=== PATIENT | female | born 1985 | race Caucasian/White ===

== ENCOUNTER → 2017-10-26 14:04 | Outpatient (REF) | payer MEDICAID, SELFPAY ==
[2017-10-26 18:40] LABS: Basophils % 0.6 % (0.1-2.0); Eosinophils # 0.2 K/mm3 (0.0-0.4); Eosinophils % 2.4 % (0.1-12.0); Hematocrit 45.1 % (37.0-47.0); Hemoglobin 13.9 g/dL (12.2-16.2); Lymphocytes # 1.7 K/mm3 (0.7-4.5); Lymphocytes % 24.2 K/mm3 (10-50); Mean Corpuscular HGB Conc 30.9 g/dL (31.8-35.4); Mean Corpuscular Volume 93.7 fl (81-99); Mean Platelet Volume 8.7 fl (7.4-10.4); Monocytes # 0.3 K/mm3 (0.1-1.0); Monocytes % 4.2 % (1.7-9.3); Neutrophils # 4.9 K/mm3 (1.8-7.8); Neutrophils % 68.5 % (37.0-80.0); Platelet Count 251 K/mm3 (142-424); Red Blood Count 4.81 M/mm3 (4.20-5.40); Red Cell Distribution Width 12.8 % (11.5-17.5); White Blood Count 7.1 K/mm3 (4.8-10.8)
[2017-10-26 18:58] LABS: Alanine Aminotransferase 38 U/L (12-78); Albumin Level 3.7 gm/dL (3.4-5.0); Albumin/Globulin Ratio 1.4 (1.1-1.8); Alkaline Phosphatase 80 U/L (46-116); Anion Gap 11.5 mEq/L (5-15); Aspartate Amino Transferase 18 U/L (15-37); Bilirubin,Total 0.2 mg/dL (0.2-1.0); Blood Urea Nitrogen 10 mg/dL (7-18); Calcium 9.4 mg/dL (8.5-10.1); Carbon Dioxide 28 mmol/L (21.0-32.0); Chloride 106 mmol/L (98-107); Chol/HDL Ratio 4.3 (1-3.5); Cholesterol 206 mg/dL (140-200); Creatinine,Serum 0.53 mg/dL (0.55-1.02); Estimated Glomerular Filt Rate 132 ml/min (>60); GFR (African American) 160 ML/MIN (>60); Globulin 2.7 gm/dl (1.3-3.2); Glucose 88 mg/dL (74-106); HDL Cholesterol 48 mg/dL (29-89); LDL Cholesterol 132 mg/dL (0-130); Potassium 4.5 mmoL/L (3.5-5.1); Sodium 141 mmol/L (136-145); T4 (Thyroxine) 7.4 ug/dl (4.7-13.3); Total Protein,Serum 6.4 gm/dL (6.4-8.2); Triglycerides 128 mg/dL (30-200); VLDL Cholesterol 26 mg/dL (0-40)
== END ==
LOC: LAB 14:04
PROVIDERS: Visit Provider Physician Assistant
DX: E66.09 Other obesity due to excess calories (principal); Z68.39 Body mass index [BMI] 39.0-39.9, adult
CPT/HCPCS: 80053; 80061; 82652; 84436; 84443; 85025

== ENCOUNTER → 2018-07-28 13:36 | Outpatient (CLI) | payer MEDICAID, SELFPAY ==
[2018-07-28 14:53] LABS: Amphetamine/Metha Screen,Urine Negative ng/mL (<1000); Barbiturates Screen,Urine Negative ng/mL (<200); Benzodiazepines Screen,Urine Negative ng/mL (<200); Cannabinoid Screen,Urine Negative ng/mL (<50); Cocaine Screen,Urine Negative ng/mL (<300); Methadone Screen,Urine Negative ng/mL (<300); Opiate Screen,Urine Negative ng/mL (<300); Phencyclidine Screen,Urine Negative ng/mL (<25)
== END ==
PROVIDERS: Visit Provider Nurse Practitioner Family
DX: Z79.899 Other long term (current) drug therapy (principal)
CPT/HCPCS: 80305

== ENCOUNTER → 2019-01-11 17:48 | Outpatient (CLI) | payer MEDICAID, SELFPAY ==
[2019-01-11 19:07] LABS: Basophils % 0.5 % (0.1-2.0); Eosinophils # 0.2 K/mm3 (0.0-0.4); Eosinophils % 2.9 % (0.1-12.0); Hematocrit 40.2 % (37.0-47.0); Hemoglobin 12.9 g/dL (12.2-16.2); Lymphocytes # 2.1 K/mm3 (0.7-4.5); Lymphocytes % 34.8 % (10-50); Mean Corpuscular HGB Conc 32.2 g/dL (31.8-35.4); Mean Corpuscular Hemoglobin 29.6 pg (27.0-31.2); Mean Corpuscular Volume 91.8 fl (81-99); Mean Platelet Volume 8.4 fl (7.4-10.4); Monocytes # 0.3 K/mm3 (0.1-1.0); Monocytes % 4.9 % (1.7-9.3); Neutrophils # 3.5 K/mm3 (1.8-7.8); Platelet Count 280 K/mm3 (142-424); Red Blood Count 4.38 M/mm3 (4.20-5.40); Red Cell Distribution Width 12.8 % (11.5-17.5); White Blood Count 6.2 K/mm3 (4.8-10.8)
[2019-01-11 21:49] LABS: Alanine Aminotransferase 29 U/L (12-78); Albumin Level 3.9 gm/dL (3.4-5.0); Albumin/Globulin Ratio 1.4 (1.1-1.8); Alkaline Phosphatase 68 U/L (46-116); Anion Gap 11.8 mEq/L (5-15); Aspartate Amino Transferase 15 U/L (15-37); Bilirubin,Total 0.2 mg/dL (0.2-1.0); Blood Urea Nitrogen 10 mg/dL (7-18); Calcium 8.9 mg/dL (8.5-10.1); Carbon Dioxide 28 mmol/L (21.0-32.0); Chloride 104 mmol/L (98-107); Chol/HDL Ratio 3.7 (1-3.5); Cholesterol 166 mg/dL (140-200); Creatinine,Serum 0.65 mg/dL (0.55-1.02); Estimated Glomerular Filt Rate 104 ml/min (>60); GFR (African American) 126 ML/MIN (>60); Globulin 2.7 gm/dl (1.3-3.2); Glucose 74 mg/dL (74-106); HDL Cholesterol 45 mg/dL (29-89); LDL Cholesterol 91 mg/dL (0-130); Potassium 3.8 mmoL/L (3.5-5.1); Sodium 140 mmol/L (136-145); T4 (Thyroxine) 7.7 ug/dl (4.7-13.3); Thyroid Stimulating Hormone 1.44 uIU/ml (0.358-3.740); Total Protein,Serum 6.6 gm/dL (6.4-8.2); Triglycerides 149 mg/dL (30-200); VLDL Cholesterol 30 mg/dL (0-40)
[2019-01-13 12:51] LABS: Vitamin D 25 Hydroxy 61.7 ng/mL (30.0-100.0)
== END ==
PROVIDERS: Visit Provider Physician Assistant
DX: L65.9 Nonscarring hair loss, unspecified (principal)
CPT/HCPCS: 80053; 80061; 82652; 84436; 84443; 85025

== ENCOUNTER 2021-11-30 09:04 | Emergency (ER) | payer MEDICAID, SELFPAY ==
[2021-11-30 09:24] VITALS: BP 117/79; PULSE 58; RESP 18; TEMP 36.7; O2SAT 99; BMI 29.0
[2021-11-30 09:48] VITALS: BP 117/79; PULSE 58; RESP 18; TEMP 36.7; O2SAT 99; BMI 29.3
--- NOTE | 2021-11-30 09:52 | XR_ITS ---
FINAL REPORT CLINICAL HISTORY: pain FINDINGS: 3 views of the left shoulder were obtained. There is no acute fracture or dislocation. The joint spaces are intact. There are no soft tissue abnormalities. IMPRESSION: No acute process. Reviewed, Interpreted and Dictated by Brian Huang MD Transcribed by Ag Edwards Authenticated and [facility]
--- NOTE | 2021-11-30 09:52 | HMH.EDUTC ---
[facility] [place] Impression: Muscle spasm Disposition: Home, Self-Care Condition on Discharge: Good Instructions: Cyclobenzaprine, DI for Muscle Spasm Additional Instructions: *Etodalac sandi 8 hours with meal as needed for pain/inflammation *Not additional anti-inflammatory like Ibuprofen motrin, aleve, advil with the above amount of Etodolac. You can still take Tylenol every 4 hours as needed if you need something else for pain *Ice 20 minutes every 2 hours for the first 48 hours after the initial injury followed by moist heat every 20 minutes 3-4 times a day to affected area *Muscle relaxer every 8 hours as needed for muscle spasms but remember, it WILL cause drowsiness You cannot take it and drive, operate machinery or care for small children. *Keep this area active, no movement leads to more stiffness, However take it easy and avoid heavy lifting pushing or pulling *Follow up with you family doctor if no improvement for further treatment Prescriptions: Etodolac 200 mg PO Q8HP PRN #20 cap PRN Reason: Moderate Pain Transmission Status: Received by [id number] Cyclobenzaprine HCl [Flexeril 10mg tablet] 10 mg PO Q8HP PRN #15 tab PRN Reason: Muscle Spasm Transmission Status: Received by [id number] methylPREDNISolone [Medrol 4mg tab] 4 mg PO DIRECTED #21 tab Transmission Status: Received by [id number] Referrals: Manuela Ovalle PA [Primary Care Provider] - As needed Forms: Work/School Release Time of Disposition: 10:15 Medical Decision Making - Neftali Inquiry Pt receiving controlled substance: No Neftali was queried for this patient: No Vital Signs: 11/30/21 09:24 11/30/21 09:48 11/30/21 10:20 Temperature 98.0 F 98.0 F 98.0 F Temperature Source Oral Oral Pulse Rate 58 L Pulse Rate [Brachial] 58 L 58 L Respiratory Rate 18 18 18 Blood Pressure 117/79 Blood Pressure [Right Arm] 117/79 117/79 Blood Pressure Mean [Right Arm] 91 91 Blood Pressure Source [Right Arm] Automatic Cuff 02 Sat by Pulse Oximetry 99 99 Oxygen Delivery Method Room Air - Radiology Data #1 Image(s): Shoulder Image Reviewed: Yes I reviewed the patient's radiology image Preliminary Findings: No Fracture [place] [facility] [place] [facility] [place] - General Stated complaint: shoulder pain Time Seen by Provider: 11/30/21 09:53 Description of Symptoms (Recalled from Triage Doc. by RN): patient comes in with left shoulder pain. 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 States that pain is worse with movement and doesnt recall doing anything to hurt it States that she was hanging from bar and lifting weights last week and muscle pain started after that Denies chest pain or radiation of pain - Related Data Previous Rx's Medication Instructions Recorded cholecalciferol (vitamin D3) 25 25 mcg PO DAILY #30 cap 12/10/20 mcg (1,000 unit) capsule ofloxacin 0.3 % ear drops 10 drp OTIC DAILY 7 Days #10 ml 04/15/21 phentermine 37.5 mg capsule 37.5 mg PO DAILY #30 cap 04/15/21 cholecalciferol (vitamin D3) 1,250 See Rx Instructions .ROUTE 08/18/21 mcg (50,000 unit) capsule .COMPLEX #13 cap Cyclobenzaprine HCl [Flexeril 10mg 10 mg PO Q8HP PRN #15 tab 11/30/21 tablet] Etodolac 200 mg PO Q8HP PRN #20 cap 11/30/21 methylPREDNISolone [Medrol 4mg 4 mg PO DIRECTED #21 tab 11/30/21 tab] Allergies Allergy/AdvReac Type Severity Reaction Status Date / Time No Known Allergies Allergy Verified 11/30/21 09:51 - Worker's Comp Is this a Worker's Comp case?: No [facility] History -
[2021-11-30 10:20] VITALS: BP 117/79; PULSE 58; RESP 18; TEMP 36.7
== END 2021-11-30 10:21 | disposition home or self-care (01) ==
PROVIDERS: Emergency Provider Nurse Practitioner; PCP Physician Assistant
DX: M62.838 Other muscle spasm (principal); M25.512 Pain in left shoulder
CPT/HCPCS: 73030; 99212; G0463

== ENCOUNTER → 2022-11-02 23:23 | Outpatient (CLI) | payer MEDICAID, SELFPAY ==
[2022-11-02 18:50] LABS: Basophils % 0.5 % (0.1-2.0); Eosinophils # 0.1 K/mm3 (0.0-0.4); Hematocrit 47.3 % (37.0-47.0); Lymphocytes # 1.9 K/mm3 (0.7-4.5); Lymphocytes % 19.8 % (10-50); Mean Corpuscular HGB Conc 31.8 g/dL (31.8-35.4); Mean Corpuscular Hemoglobin 29.6 pg (27.0-31.2); Mean Corpuscular Volume 93.1 fl (81-99); Mean Platelet Volume 9.2 fl (7.4-10.4); Monocytes # 0.4 K/mm3 (0.1-1.0); Monocytes % 3.9 % (1.7-9.3); Neutrophils # 7.1 K/mm3 (1.8-7.8); Neutrophils % 74.8 % (37.0-80.0); Platelet Count 299 K/mm3 (142-424); Red Blood Count 5.08 M/mm3 (4.20-5.40); Red Cell Distribution Width 13.7 % (11.5-17.5); White Blood Count 9.4 K/mm3 (4.8-10.8)
[2022-11-02 19:06] LABS: Alanine Aminotransferase 23 U/L (12-78); Albumin Level 4.6 g/dl (3.5-5.0); Albumin/Globulin Ratio 1.7 (1.1-1.8); Alkaline Phosphatase 69 U/L (38-126); Anion Gap 18.3 mEq/L (5-15); Aspartate Amino Transferase 28 U/L (14-36); Bilirubin,Total 0.4 mg/dl (0.2-1.3); Blood Urea Nitrogen 12 mg/dl (7-17); Calcium 9.5 mg/dl (8.4-10.2); Carbon Dioxide 27 mmol/L (22.0-30.0); Chloride 100 mmol/L (98-107); Chol/HDL Ratio 2.5 (1-3.5); Cholesterol 170 mg/dl (140-200); Estimated Glomerular Filt Rate 111 ml/min (>60); GFR (African American) 135 ML/MIN (>60); Globulin 2.7 g/dL (1.3-3.2); Glucose 80 mg/dl (74-100); HDL Cholesterol 68 mg/dl (40-60); Potassium 4.3 mmoL/L (3.5-5.1); Sodium 141 mmol/L (136-145); Total Protein,Serum 7.3 g/dl (6.3-8.2); Triglycerides 140 mg/dl (30-150); VLDL Cholesterol 28 mg/dL (0-40)
[2022-11-02 19:17] LABS: Direct LDL Cholesterol 78.56 mg/dL (100-129)
[2022-11-02 19:24] LABS: 25-OH Vitamin D, Total 83.6 ng/mL (30-100)
[2022-11-02 19:37] LABS: Thyroid Stimulating Hormone 1.74 uIU/mL (0.465-4.68)
[2022-11-02 19:56] LABS: Vitamin B12 710 pg/mL (239-931)
== END ==
PROVIDERS: PCP Physician Assistant; Visit Provider Physician Assistant
DX: Z00.00 Encounter for general adult medical examination without abnormal findings (principal); R53.83 Other fatigue; E66.3 Overweight; Z68.29 Body mass index [BMI] 29.0-29.9, adult
CPT/HCPCS: 80053; 80061; 82306; 82607; 84443; 85025

== ENCOUNTER 2023-08-19 12:12 | Outpatient (CLI) | payer MEDICAID, SELFPAY ==
[2023-08-19 12:51] LABS: Basophils # 0.1 K/mm3 (0-0.2); Basophils % 1.4 % (0.1-2.0); Eosinophils # 0.1 K/mm3 (0.0-0.4); Eosinophils % 1.3 % (0.1-12.0); Hematocrit 42.8 % (37.0-47.0); Lymphocytes # 1.8 K/mm3 (0.7-4.5); Lymphocytes % 34.8 % (10-50); Mean Corpuscular HGB Conc 32.6 g/dL (31.8-35.4); Mean Corpuscular Hemoglobin 30.9 pg (27.0-31.2); Mean Corpuscular Volume 94.9 fl (81-99); Mean Platelet Volume 8.6 fl (7.4-10.4); Monocytes # 0.2 K/mm3 (0.1-1.0); Monocytes % 3.8 % (1.7-9.3); Neutrophils # 3.1 K/mm3 (1.8-7.8); Neutrophils % 58.8 % (37.0-80.0); Platelet Count 228 K/mm3 (142-424); Red Blood Count 4.51 M/mm3 (4.20-5.40); Red Cell Distribution Width 13.6 % (11.5-17.5); White Blood Count 5.2 K/mm3 (4.8-10.8)
[2023-08-19 13:05] LABS: Hemoglobin A1C 4.9 % (4.0-6.0)
[2023-08-19 13:14] LABS: Alanine Aminotransferase 17 U/L (12-78); Albumin Level 4.5 g/dl (3.5-5.0); Albumin/Globulin Ratio 2.3 (1.1-1.8); Alkaline Phosphatase 39 U/L (38-126); Anion Gap 8.7 mEq/L (5-15); Aspartate Amino Transferase 27 U/L (14-36); Bilirubin,Total 0.5 mg/dl (0.2-1.3); Blood Urea Nitrogen 18 mg/dl (7-17); Calcium 9.6 mg/dl (8.4-10.2); Carbon Dioxide 29 mmol/L (22.0-30.0); Chloride 105 mmol/L (98-107); Chol/HDL Ratio 3.5 (1-3.5); Cholesterol 174 mg/dl (140-200); Estimated Glomerular Filt Rate 93 ml/min (>60); GFR (African American) 112 ML/MIN (>60); Glucose 94 mg/dl (74-100); HDL Cholesterol 50 mg/dl (40-60); Potassium 3.7 mmoL/L (3.5-5.1); Sodium 139 mmol/L (136-145); Total Protein,Serum 6.5 g/dl (6.3-8.2); Triglycerides 41 mg/dl (30-150); VLDL Cholesterol 8 mg/dL (0-40)
[2023-08-19 13:24] LABS: Direct LDL Cholesterol 91.52 mg/dL (100-129)
[2023-08-19 13:28] LABS: Troponin I < 0.01 ng/ml (0.00-0.034)
[2023-08-19 13:30] LABS: Free Thyroxine Index 2.4 ug/dL (5.93-13.13); Triiodothryronine (T3) Uptake 34 % (23.5-40.5)
[2023-08-19 13:32] LABS: 25-OH Vitamin D, Total 76.7 ng/mL (30-100)
[2023-08-19 13:43] LABS: Thyroid Stimulating Hormone 0.88 uIU/mL (0.465-4.68)
[2023-08-19 14:06] LABS: Vitamin B12 814 pg/mL (239-931)
== END 2023-08-19 23:59 ==
LOC: LAB 12:13
PROVIDERS: PCP Physician Assistant; Visit Provider Family Medicine
DX: R07.9 Chest pain, unspecified (principal); R53.83 Other fatigue; R68.89 Other general symptoms and signs; E55.9 Vitamin D deficiency, unspecified; R06.02 Shortness of breath; R42 Dizziness and giddiness; R94.31 Abnormal electrocardiogram [ECG] [EKG]; Z82.49 Family history of ischemic heart disease and other diseases of the circulatory system; Z87.891 Personal history of nicotine dependence
CPT/HCPCS: 36415; 80053; 80061; 82306; 82607; 83036; 84436; 84443; 84479; 84484; 85025; 93270

== ENCOUNTER 2023-09-01 13:34 | Outpatient (CLI) | payer MEDICAID, SELFPAY ==
--- NOTE | 2023-09-01 13:42 | CA_ITS ---
APPROVED REPORT EXAM: Comprehensive 2D, Doppler, and color-flow Echocardiogram Judicial Registrar: Emily Lee RT(R) Ht: 5 ft 6 in Wt: 173lbs BSA: 1.88 BP: 148/82 mmHg Indications: angina, abn EKG, ex smoker, family history of HD 2D Dimensions LVEF (Pulido's) 64.60 % F: 54 - 74 LV Volume 118.50 mL F: 46 - 106 LV Volume Index 63.0 mL/m2 F: 29 - 61 LA Volume 41.90 mL LA Volume Index 22.29 mL/m2 (M/F) 16-34 EF AP4 64.00 % EF AP2 64.4 % EF BP 64.6 % GL Strain -20.9 % M-Mode Dimensions RVDd 3.42 cm (0.9-2.6) LA Diam 3.62 cm (1.9-4.0) LVDd 5.28 cm (3.5-5.7) LVDs 3.88 cm (3.5-5.7) IVSd 0.72 cm (0.6-1.1) PWd 0.72 cm (0.6-1.1) EF (Teich) 51.50% FS 26.50% EDV (Teich) 134.20 mL ESV (Teich) 65.10 mL LV Diastology E Decel Time 227 (160-240 msec) E/A Ratio 1.5 Mitral Valve MV E Max Rodrigo. 79.0 (40-130 cm/s) MV A Velocity 53.0 (40-130 cm/s) E/A Ratio 1.50 MV PHT 66.0 ms Left Ventricle The left ventricle is normal size. The left ventricular systolic function is normal. The left ventricular ejection fraction is within the normal range. There is normal left ventricular wall thickness. There is normal LV segmental wall motion. The left ventricular diastolic function is normal. LVEF is 55%. Right Ventricle The right ventricle is normal size. The right ventricular systolic function is normal. Atria The left atrium size is normal. The right atrium size is normal. There is no Doppler evidence of interatrial shunt. Aortic Valve The aortic valve opens well. There is no aortic valvular stenosis. No aortic regurgitation is present. Mitral Valve The mitral valve is normal in structure. No evidence of mitral valve stenosis. Mild mitral regurgitation. Tricuspid Valve The tricuspid valve leaflets are thin and pliable. Mild tricuspid regurgitation. RVSP is 20-25 mmHg. Pulmonic Valve The pulmonary valve is normal in structure. Trace pulmonic regurgitation. Great Vessels The aortic root is normal in size. The ascending aorta is borderline dilated, measuring 3.7 cm in diameter. IVC is normal in size and collapses >50% with inspiration. Pericardium There is no pericardial effusion. Other Information Study Quality: Adequate Conclusion Normal biventricular systolic function. Mild MR, mild TR. The ascending aorta is borderline dilated, measuring 3.7 cm in diameter. Further evaluation with CTA chest is recommended to confirm/correlate ascending aorta dilation finding. Electronically signed by : Ana Luisa Nuñez MD 09/04/2023 01:44:54
== END 2023-09-01 23:59 ==
LOC: RT 13:35
PROVIDERS: PCP Physician Assistant; Visit Provider Family Medicine
DX: I20.89 Other forms of angina pectoris (principal); R94.31 Abnormal electrocardiogram [ECG] [EKG]; R68.89 Other general symptoms and signs; F17.200 Nicotine dependence, unspecified, uncomplicated; Z82.49 Family history of ischemic heart disease and other diseases of the circulatory system
CPT/HCPCS: 93306

== ENCOUNTER 2023-09-02 17:11 | Outpatient (CLI) | payer MEDICAID, SELFPAY ==
--- NOTE | 2023-09-02 17:19 | XR_ITS ---
PROCEDURE INFORMATION: Exam: XR Chest Exam date and time: 09/02/2023 5:23 PM Age: 38 years old Clinical indication: Sternal or substernal pain; Additional info: Chest pain TECHNIQUE: Imaging protocol: Radiologic exam of the chest. Views: 2 views. COMPARISON: CR XR SHOULDER LT MIN 2V 11/30/2021 9:48 AM FINDINGS: Lungs: Unremarkable. No consolidation. Pleural spaces: Unremarkable. No pleural effusion. No pneumothorax. Heart/Mediastinum: Unremarkable. No cardiomegaly. Bones/joints: Unremarkable. IMPRESSION: No acute findings.
== END 2023-09-02 23:59 ==
LOC: RAD 17:15
PROVIDERS: PCP Physician Assistant; Visit Provider Physician Assistant
DX: R07.9 Chest pain, unspecified (principal); F17.200 Nicotine dependence, unspecified, uncomplicated
CPT/HCPCS: 71046

== ENCOUNTER 2023-10-14 09:41 | Outpatient (CLI) | payer MEDICAID, SELFPAY ==
--- NOTE | 2023-10-14 09:41 | CA_ITS ---
APPROVED REPORT Exam: Exercise Treadmill Technologist: Willa Kang, Ht: 5 ft 6 in Wt: 179 lbs BSA: 1.91 m2 HR: 61 bpm BP: 127/78 mmHg Rhythm: sinus bradycardia Medical History Medications: Cyclobenzaprine,,,,, Cardiac Risk Factors: Hyperlipidemia, FHX of CAD, Smoking Stress Test Details Test: Mara HR Resting HR: 59 bpm Max Heart Rate (APMHR): 180 bpm Max HR Achieved: 170 bpm Target HR (85% APMHR): 153 bpm % of APMHR: 94 Recovery HR: 126 bpm HR response to stress: Normal HR response to stress BP Resting BP: 125.0/84 mmHg Max BP: 183/104 mmHg Recovery BP: 183.0/104.0 mmHg BP response to stress: Normal blood pressure response to stress. ECG Resting ECG: sinus bradycardia, no ST changes Stress ECG: < 0.[address] depression Arrhythmia: PVCs Recovery ECG: Return to baseline within 3 minutes of recovery Recovery Arrhythmia: None Clinical Exercise duration: 12:35 min Highest Stage Achieved: Exercise capacity: 12.8 METs Overall Exercise Capacity for Age: Good Stress ECG Conclusion Pt walked total of 12:35 minutes on mara protocol. She achieved a total of 12.8 METs. She has good exercise capacity compared to age and sex matched peers. She has normal HR and BP response to exercise. Pt had dizziness near end of exercise. No chest pain noted. Rare PVC noted. ST changes: < 0.[address] depression that resolved within 3 minutes of recovery CONCLUSION: Good exercise capacity. Normal ST response to exercise. Normal GXT (GXT only, no imaging). Test Summary REST . . . . . . . Sitting REST . . . . . . . Standing REST 10:51 0.0 0.0 59 . 125/ 84 . . Stage 1 01:00 10.0 1.7 90 . . . . Stage 1 02:00 10.0 1.7 95 . . . . Stage 1 03:00 10.0 1.7 86 . 128/ 84 . . Stage 2 01:00 12.0 2.5 97 . . . . Stage 2 02:00 12.0 2.5 100 . . . . Stage 2 03:00 12.0 2.5 105 . 146/ 84 . . Stage 3 01:00 14.0 3.4 121 . . . . Stage 3 02:00 14.0 3.4 124 . . . . Stage 3 03:00 14.0 3.4 127 . 166/ 88 . . Stage 4 01:00 16.0 4.2 148 . . . . Stage 4 02:00 16.0 4.2 155 . . . . Stage 4 03:00 16.0 4.2 157 . . . . Stage 5 00:35 18.0 5.0 169 . . . Stop exercise at 12:35 RECOVERY 01:00 0.0 0.0 132 . . . . RECOVERY 02:00 0.0 0.0 104 . 183/104 . . RECOVERY 03:00 0.0 0.0 87 . 150/ 79 . . RECOVERY 04:00 0.0 0.0 79 . 150/ 79 . . RECOVERY 05:00 0.0 0.0 83 . 141/ 80 . . RECOVERY 05:20 0.0 0.0 82 . 141/ 80 . . Electronically signed by : Ana Luisa Nuñez MD 10/25/2023 01:55:40
== END 2023-10-14 23:59 | disposition home or self-care (01) ==
LOC: RT 09:41
PROVIDERS: PCP Physician Assistant; Visit Provider Physician Assistant
DX: R07.9 Chest pain, unspecified (principal); Z82.49 Family history of ischemic heart disease and other diseases of the circulatory system; E78.5 Hyperlipidemia, unspecified; F17.210 Nicotine dependence, cigarettes, uncomplicated
CPT/HCPCS: 93017; 93018